=== PATIENT | female | born 1945 | race Caucasian/White ===

== ENCOUNTER 2018-07-01 11:28 | Emergency (ER) | END 2018-07-01 13:26 | disposition home or self-care (01) ==

== ENCOUNTER 2018-11-03 | Emergency (ER) | payer MEDICARE, BC ==
[~2018-11-03] VITALS: Ht 170.2 cm; Wt 73.4 kg
[~2018-11-03] MED LIST: ALPR0.5T PO; AMLO-147 PO; ASPI-903 PO; CARV12.598 PO; LOSA50TA2 PO; MECL12.574 PO; ONDA4TAB14 PO
[2018-11-03 00:05] VITALS: Ht 170.2 cm; Wt 73.4 kg
[2018-11-03] MEDS ORDERED: SOD CHLORIDE 0.9% 500 ML IV STA (01:11)
[2018-11-03] MEDS ORDERED: CLIN300C10 PO (02:19)
[2018-11-03] MEDS ORDERED: DIPH25CA6 PO (02:20)
[2018-11-03] MEDS ORDERED: ALPR0.5T PO (03:00)
--- NOTE | 2018-11-03 03:04 | ERD ---
ER Documentation Chief Complaint Chief Complaint PALPITATIONS X4DAYS HPI 73-year-old female palpitations for the past 4 days. She says she is under a lot of stress lately she has had similar complaints in the past and has been related to anxiety. Denies any ccoo chest pain. No nausea no vomiting fevers or chills. No shortness of breath. No other current complaints. ROS All systems reviewed and are negative except as per history of present illness. Medications Home Meds Active Scripts Alprazolam* (Xanax*) 0.5 Mg Tab, 0.5 MG PO Q8H PRN for ANXIETY, #14 TAB Prov:PADDY WOODARD 11/03/18 Ondansetron (Ondansetron Odt) 4 Mg Tab.rapdis, 4 MG PO Q6H PRN for NAUSEA AND/OR VOMITING, #10 TAB Prov:JAIME SALAS MD 07/01/18 Meclizine Hcl* (Antivert*) 12.5 Mg Tab, 25 MG PO Q6H PRN for DIZZINESS, #20 TAB Prov:JAIME SALAS MD 07/01/18 Losartan Potassium* (Cozaar*) 50 Mg Tablet, 50 MG PO BID for 15 Days, #30 TAB Prov:HOWIE DAVEY NP 07/14/16 Amlodipine Besylate* (Amlodipine Besylate*) 10 Mg Tablet, 10 MG PO BID for 15 Days, #30 TAB Prov:HOWIE DAVEY NP 07/14/16 Carvedilol* (Coreg*) 12.5 Mg Tablet, 12.5 MG PO BID for 15 Days, #30 TAB Prov:HOWIE DAVEY NP 07/14/16 Reported Medications Diphenhydramine Hcl* (Diphenhydramine Hcl*) 25 Mg Capsule, 25 MG PO Q6 PRN for ITCHING, CAP 11/03/18 Clindamycin Hcl* (Clindamycin Hcl*) 300 Mg Capsule, 300 MG PO Q6, CAP 11/03/18 Aspirin* (Aspirin* Chew) 81 Mg Tab.chew, 81 MG PO DAILY, TAB.CHEW 07/13/16 Allergies Allergies: Coded Allergies: alendronate sodium (Unverified Allergy, Unknown, 11/03/18) sulfamethoxazole (Unverified Allergy, Unknown, 11/03/18) trimethoprim (Unverified Allergy, Unknown, 11/03/18) amoxicillin (Unverified Adverse Reaction, Unknown, 11/03/18) ciprofloxacin (Unverified Adverse Reaction, Unknown, 11/03/18) fentanyl (Unverified Adverse Reaction, Unknown, CHEST PAIN, 11/03/18) levofloxacin (Unverified Adverse Reaction, Unknown, HEADACHE, 11/03/18) propofol (Unverified Adverse Reaction, Unknown, CHEST PAIN, 11/03/18) PMhx/Soc History of Surgery: Yes (LAPAROSCOPY) Anesthesia Reaction: No Hx Neurological Disorder: No Hx Respiratory Disorders: No Hx Cardiac Disorders: Yes (HTN, cholesterol) Hx Psychiatric Problems: No Hx Miscellaneous Medical Probl: No Hx Alcohol Use: No Hx Substance Use: No Hx Tobacco Use: No Physical Exam Vitals Vital Signs Date Temp Pulse Resp B/P (MAP) Pulse Ox O2 O2 Flow FiO2 Time Delivery Rate 11/03/18 97.7 113 12 157/102 100 Room Air 02:11 (120) 11/03/18 97.7 58 14 166/88 99 Room Air 01:46 (114) 11/03/18 97.2 74 19 140/73 97 00:05 (95) Physical Exam Const: No acute distress Head: Atraumatic Eyes: Normal Conjunctiva ENT: Normal External Ears, Nose and Mouth. Neck: Full range of motion. No meningismus. Resp: Clear to auscultation bilaterally Cardio: Regular rate and rhythm, no murmurs Abd: Soft, non tender, non distended. Normal bowel sounds Skin: No petechiae or rashes Back: No midline or flank tenderness Ext: No cyanosis, or edema Neur: Awake and alert Psych: Normal Mood and Affect Result Diagram: 11/03/18 0151 11/03/18 0151 Results 24 hrs Laboratory Tests Test 11/03/18 01:51 White Blood Count 4.1 10^3/ul Red Blood Count 4.65 10^6/ul Hemoglobin 13.4 g/dl Hematocrit 41.2 % Mean Corpuscular Volume 88.6 fl Mean Corpuscular Hemoglobin 28.8 pg Mean Corpuscular Hemoglobin Concent 32.5 g/dl Red Cell Distribution Width 12.8 % Platelet Count 180 10^3/UL Mean Platelet Volume 9.9 fl Immature Granulocytes % 0.200 % Neutrophils % 47.3 % Lymphocytes % 42.8 % Monocytes % 7.3 % Eosinophils % 1.9 % Basophils % 0.5 % Nucleated Red Blood Cells % 0.0 /100WBC Immature Granulocytes # 0.010 10^3/ul Neutrophils # 1.9 10^3/ul Lymphocytes # 1.8 10^3/ul Monocytes # 0.3 10^3/ul Eosinophils # 0.1 10^3/ul Basophils # 0.0 10^3/ul Nucleated Red Blood Cells # 0.0 10^3/ul Sodium Level 139 mmol/L Potassium Level 3.8 mmol/L Chloride Level 100 mmol/L Carbon Dioxide Level 30 mmol/L Anion Gap 9 Blood Urea Nitrogen 27 mg/dl Creatinine 1.39 mg/dl Est Glomerular Filtrat Rate mL/min mL/min Glucose Level 110 mg/dl Calcium Level 9.9 mg/dl Total Bilirubin 0.2 mg/dl Direct Bilirubin 0.00 mg/dl Indirect Bilirubin 0.2 mg/dl Aspartate Amino Transf (AST/SGOT) 29 IU/L Alanine Aminotransferase (ALT/SGPT) 15 IU/L Alkaline Phosphatase 92 IU/L Troponin I < 0.012 ng/ml B-Type Natriuretic Peptide 216 PG/ML Total Protein 8.2 g/dl Albumin 4.6 g/dl Globulin 3.60 g/dl Albumin/Globulin Ratio 1.27 Current Medications Medications Dose Sig/Amie Start Time Status Last (Trade) Ordered Route PRN Stop Time Admin Dose Reason Admin Sodium 500 ml @ Q1H STAT 11/03/18 DC 11/03/18 Chloride 500 mls/hr IV 01:11 02:11 11/03/18 02:10 Procedures/MDM EKG: Rate/Rhythm: [Normal Sinus Rhythm] QRS, ST, T-waves: [No changes consistent w/ acute ischemia] Impression: [No evidence of ischemia or arrhythmia] Chest X-ray 1V Interpreted by me: Soft Tissue: No acute abnormalities Bones: No acute abnormalities Mediastinum/Cardiac Silhouette/Lungs: [No acute abnormalities] Patient's thoracic symptoms have stabilized while in the department and are stable for outpatient follow up. Exam and work up not consistent w/ ischemia, arrhythmia, PE or dissection. Departure Diagnosis: Primary Impression: Palpitations Condition: Stable Patient Instructions: Palpitations PADDY WOODARD Nov 03, 2018 03:04
[2018-11-03 03:35] VITALS: BP 135/81; PULSE 95; RESP 12
== END 2018-11-03 03:37 | disposition home or self-care (01) ==
LOC: E/R
DX: R00.2 Palpitations (principal); I10 Essential (primary) hypertension; Z79.82 Long term (current) use of aspirin
CPT/HCPCS: 36415; 71045; 80053; 83880; 84484; 85025; 93005; 99285; J7040